=== PATIENT | female | born 1955 | race Caucasian/White ===

== ENCOUNTER 2018-11-22 16:47 | Emergency (ER) | payer BC ==
[~2018-11-22] VITALS: Ht 154.9 cm; Wt 65.9 kg
[2018-11-22 17:07] VITALS: BP 134/78
[2018-11-22 18:21] LABS: AMPHET/METH SCREEN,URINE NEGATIVE (NEGATIVE); BARBITURATE SCREEN, URINE NEGATIVE (NEGATIVE); BENZODIAZEPINES SCREEN,URINE POSITIVE (NEGATIVE); CANNABINOID SCREEN,URINE POSITIVE (NEGATIVE); COCAINE SCREEN,URINE NEGATIVE (NEGATIVE); METHADONE SCREEN, URINE NEGATIVE (NEGATIVE); OPIATE SCREEN,URINE NEGATIVE (NEGATIVE)
[2018-11-22 18:23] LABS: PHENCYCLIDINE SCREEN,URINE NEGATIVE (NEGATIVE)
== END 2018-11-22 19:30 | disposition home or self-care (01) ==
LOC: EMS 16:53
DX: R45.851 Suicidal ideations (principal); F12.90 Cannabis use, unspecified, uncomplicated; F11.90 Opioid use, unspecified, uncomplicated; Z91.018 Allergy to other foods; Z91.010 Allergy to peanuts